=== PATIENT | male | born 1965 | race Caucasian/White ===

== ENCOUNTER 2017-01-15 17:14 | Emergency (ER) | payer BC, OTHER ==
[~2017-01-15] VITALS: Ht 182.9 cm; Wt 127.3 kg
[~2017-01-15 17:14] MED LIST: ALLO100T PO; CLR10 PO; GEMF600T3 PO; PARO1TAB27 PO
[2017-01-15 17:20] VITALS: TEMP 36.7; Ht 182.9 cm; Wt 127.3 kg
[2017-01-15] MEDS ORDERED: DIPHTHERIA/TETANUS/PERTUSSIS 0.5 ML SYR/VIAL IM. ONE (17:45)
[2017-01-15] MEDS ORDERED: XYLOCAINE 1%/SOD BICARB 20 ML VIAL INFIL ONE (17:45)
--- NOTE | 2017-01-15 17:48 | EMERGENCY ROOM VISIT NOTE ---
ED Visit Note First contact with patient: 17:38 CHIEF COMPLAINT: Finger laceration HISTORY OF PRESENT ILLNESS: This 51-year-old male patient presents to the emergency department ambulatory after cutting the right first finger on the blade on a beef blower just prior to arrival. The bleeding has stopped. Denies weakness or numbness of the finger. The patient has full range of motion of the fingers. The patient denies any pain. The patient denies any other injuries. The patient's tetanus shot is not up to date. REVIEW OF SYSTEMS: A 6 system review of systems was completed with positives and pertinent negatives listed in the HPI. ALLERGIES: No known drug allergies MEDICATIONS: See nursing notes PMH: Hypertension, gout SOCIAL HISTORY: The patient lives locally. He is employed. He does not smoke PHYSICAL EXAM: Vital Signs: Reviewed Nurse's notes, vital signs stable. GENERAL : This is a 51-year-old male, in no acute distress, well developed, well nourished. SKIN: There is a flap-like,2 cm long laceration on the distal palmar aspect of the right first finger. The edges gape apart with traction. There is no foreign material in the wound and it looks clean. There is minimal bleeding. No deep structures such as tendons, bones, or nerves are seen in the base of the wound. Extension and flexion of the finger is full and strong. Full range of motion of the wrist and other fingers. Capillary refill less than 2 seconds. Normal sensation to light and sharp touch. EMERGENCY DEPARTMENT COURSE: I examined the patient. Using sterile technique the wound was cleaned with Betadine. 5 ml of 1% buffered lidocaine was used to perform a digital block to anesthetize the patient. The area was sterilely draped. Once the patient was numb, the wound was copiously irrigated under pressure with sterile saline. The wound was explored and there were no deep structures such as tendons, bone, or ligaments present. The laceration was repaired using 4 simple interrupted 5-0 nylon sutures. The patient tolerated the procedure well. The bleeding stopped. The area was cleaned with sterile saline and dressed with bacitracin ointment and bandage. The patient was given a tetanus booster. The patient was discharged home in good condition. The patient presents to the emergency department with a laceration to the right thumb. This appears to be a very thin flap. There does not appear to be any open fracture and the wound does not appear to be open to the bone. I advised the patient that the soft tissue flap will likely and fall off but it may be of benefit to tack the flap down until the skin beneath heels. The patient was given a take-home pack of Eddy. He was placed in a metal splint. He should contact orthopedics on Wednesday to schedule a follow-up appointment for further evaluation and management. Patient return to the ER if any worsening symptoms. DISCHARGE INSTRUCTIONS & TREATMENT: Keep wound clean and dry. Do not allow any crusting or dried blood to accumulate on sutures. If this occurs, use a 1:1 solution of hydrogen peroxide/water on a Q-tip to clean the wound. Use an antibiotic ointment for 3-4 days, then let wound dry. Suture removal in 10-12 days. Return sooner for any signs of infection (increasing redness, swelling, drainage). Ice and elevate for swelling and pain. Ibuprofen 600 mg and Tylenol 1000 mg every 6 hrs for pain. Keep covered when in sun until sutures removed then SPF 50 or higher for one year. Vitamin E oil if desired two weeks after suture removal for reduction of scar. RIGHT THUMB RADIOGRAPHS CLINICAL HISTORY: Right thumb laceration/injury. COMPARISON: None FINDINGS: There is a markedly comminuted, mildly displaced fracture through the mid to distal aspect of the distal phalanx of the right thumb. There are multiple associated bone fragments. There is soft tissue injury. No additional fractures are identified. IMPRESSION: Mildly displaced, markedly comminuted fracture of the distal phalanx of the right thumb with multiple associated small bone fragments. Current/Historical Medications Scheduled Allopurinol (Zyloprim), 100 MG PO DAILY Amphetamine-Dextroamphetamine 10MG (Adderall 10MG), 10 MG PO BID Atorvastatin (Lipitor), 40 MG PO DAILY Lisinopril/Hctz (Zestoretic 20MG/12.5MG), 1 TAB PO DAILY Metformin Hcl Er (Glucophage Er), 500 MG PO DAILY Paroxetine (Paxil), 20 MG PO DAILY Trazodone Hcl (Trazodone), 50 MG PO HS Scheduled PRN Lorazepam (Ativan), 0.5 MG PO BID PRN for Anxiety Allergies Coded Allergies: No Known Allergies (Unverified , 08/24/16) Vital Signs Date Time Temp Pulse Resp B/P Pulse Ox O2 Delivery O2 Flow Rate FiO2 4/28/17 19:29 64 144/92 97 Room Air 01/15/17 17:20 36.7 59 18 175/94 98 Room Air Medications Administered Medications (Trade) Dose Ordered Sig/Ankit Route Start Time Stop Time Status Last Admin Dose Admin Diphtheria/ Pertussis/Tetanus Vacc (Adacel Inj) 0.5 ml ONCE ONCE IM. 01/15/17 17:45 01/15/17 17:46 DC 01/15/17 18:24 0.5 ML Lidocaine HCl (Buffered Lidocaine 1% Inj) 20 ml NOW ONCE INFIL 01/15/17 17:45 01/15/17 17:46 DC 01/15/17 18:25 20 ML Acetaminophen/ Hydrocodone Bitart (Eddy 5/325mg Home Pack) 1 homepack UD ONCE PO 01/15/17 19:30 01/15/17 19:31 DC 01/15/17 19:31 1 HOMEPACK Departure Information Impression Primary Impression: Laceration of finger Additional Impression: Finger fracture Dispostion Home / Self-Care Condition GOOD Referrals Jason Casey D.O. (PCP) Martin Reza, DO Patient Instructions [facility] Additional Instructions Keep wound clean and dry. Do not allow any crusting or dried blood to accumulate on sutures. If this occurs, use a 1:1 solution of hydrogen peroxide/ water on a Q-tip to clean the wound. Use an antibiotic ointment for 3-4 days, then let wound dry. Suture removal in 10-12 days. Return sooner for any signs of infection (increasing redness, swelling, drainage). Ice and elevate for swelling and pain. Ibuprofen 600 mg every 6 hrs for pain. Keep covered when in sun until sutures removed then SPF 50 or higher for one year. Vitamin E oil if desired two weeks after suture removal for reduction of scar. Wear the splint until seen by orthopedics Contact orthopedics Wednesday to schedule a follow-up appointment for further evaluation and management of the fracture Eddy 1 tablet every 6 hours if needed for worse pain. Do not drink or drive while taking Eddy and do not take with Tylenol. Problem Qualifiers Primary Impression: Laceration of finger Encounter type: initial encounter Qualified Codes: S61.219A - Laceration without foreign body of unspecified finger without damage to nail, initial encounter Additional Impression: Finger fracture Encounter type: initial encounter Finger: thumb Fracture type: closed Phalanx: distal Fracture alignment: displaced Laterality: right Qualified Codes: S62.521A - Displaced fracture of distal phalanx of right thumb, initial encounter for closed fracture
[2017-01-15] MEDS ORDERED: ATOR-24 PO (18:08)
[2017-01-15] MEDS ORDERED: LORA-741 PO (18:08)
[2017-01-15] MEDS ORDERED: TRAZ50TA35 PO (18:08)
[2017-01-15] MEDS ORDERED: LISI-787 PO (18:08)
[2017-01-15] MEDS ORDERED: METF500T5 PO (18:08)
[2017-01-15] MEDS ORDERED: AMPH10TA2 PO (18:08)
--- NOTE | 2017-01-15 18:47 | DIAGNOSTIC IMAGING REPORT ---
RIGHT THUMB RADIOGRAPHS CLINICAL HISTORY: Right thumb laceration/injury. COMPARISON: None FINDINGS: There is a markedly comminuted, mildly displaced fracture through the mid to distal aspect of the distal phalanx of the right thumb. There are multiple associated bone fragments. There is soft tissue injury. No additional fractures are identified. IMPRESSION: Mildly displaced, markedly comminuted fracture of the distal phalanx of the right thumb with multiple associated small bone fragments. Electronically signed by: Warren Cotto M.D. 01/15/2017 6:46 PM Dictated Date/Time: 01/15/2017 6:45 PM
[2017-01-15 19:29] VITALS: BP 144/92; PULSE 64; O2SAT 97
[2017-01-15] MEDS ORDERED: NORCO 5/325MG HOME PACK PO ONE (19:30)
[2017-07-29] MEDS ORDERED: AMPH10TA2 PO (07:53)
[2017-08-17] MEDS ORDERED: TRAM-10 PO (07:21)
== END 2017-01-15 19:39 | disposition home or self-care (01) ==
LOC: C.EDB 17:15 → C.EDD 19:39
DX: S61.011A Laceration without foreign body of right thumb without damage to nail, initial encounter (principal); W31.9XXA Contact with unspecified machinery, initial encounter; Z23 Encounter for immunization; I10 Essential (primary) hypertension; M10.9 Gout, unspecified; Z79.899 Other long term (current) drug therapy

== ENCOUNTER → 2017-08-17 | Day surgery (SDC) | payer BC ==
[2017-07-29 07:54] VITALS: Ht 182.9 cm; Wt 118.2 kg
[~2017-08-17] VITALS: Ht 182.9 cm; Wt 118.2 kg
[~2017-08-17] MED LIST changes: +AMPH10TA2 PO; +ATOR-24 PO; +ATROPINE SULFATE 0.1 MG/ML 5ML SYR IV PRN; +BUPIVACAINE 0.5 % 5 MG/1 ML MPF 30ML VIAL ONE; +CEFAZOLIN 2000MG IV PUSH 10 ML IV SCH; -CLR10 PO; +EpHEDrine SULFATE INJ 50 MG/ML AMP IV PRN; +FENTANYL CITRATE INJ 50 MCG/1 ML 2 ML VIAL IV PRN; +FENTANYL CITRATE INJ 50 MCG/1 ML 2 ML VIAL ONE; -GEMF600T3 PO; +LACTATED RINGER'S 1000ML 1,000 ML IV SCH; +LIDOCAINE HCL 1% 20 ML VIAL ONE; +LISI-787 PO; +LORA-741 PO; +METF500T5 PO; +MIDAZOLAM HCL 1 MG/ML 2ML VIAL ONE; +ONDANSETRON INJ 2 MG/ML 2 ML VIAL IV PRN; +OXYCODONE/ACETAMINOPHEN 5-325 TAB PO PRN; +PROPOFOL IV EMULSION 10 MG/ML 20 ML VIAL IV ONE; +SODIUM CHLORIDE 0.9% 1000ML 1,000 ML IV SCH; +TRAM-10 PO; +TRAZ50TA35 PO
--- NOTE | 2017-08-17 06:40 | History & Physical Bridge - SC ---
H&P Re-Evaluation Bridge Note: I have examined the patient, reviewed the History & Physical and in the interval since the performance of the History & Physical I have noted the following changes of clinical significance: No changes noted
--- NOTE | 2017-08-17 07:19 | [facility] Post Operative Brief Note ---
Immediate Operative Summary Operative Date Aug 17, 2017. Pre-Operative Diagnosis Left Carpal Tunnel Syndrome Post-Operative Diagnosis Same Procedure(s) Performed Left Carpal Tunnel Release Surgeon Dr. Alice Robert Cord Maker Surgeon(s) Gracia Berger PA-C Estimated Blood Loss 0 CC Findings ABOVE Specimens None Anesthesia LOCAL IV SEDATION Complication(s) None Disposition
[2017-08-17 07:21] VITALS: TEMP 36.4
--- NOTE | 2017-08-17 07:22 | Discharge Instructions-SurgCtr ---
Discharge Instructions Date of Service Aug 17, 2017. Visit Reason for Visit: Left Carpal Tunnel Syndrome Discharge Discharge Diagnosis / Problem: SAME ABOVE Discharge Goals Goal(s): Decrease discomfort, Improve function Activity Recommendations Activity Limitations: as noted below Lifting Limitations: until after follow-up appointment Exercise/Sports Limitations: until after follow-up appointment Shower/Bathe: keep incision dry Anesthesia . Post Anesthesia Instructions: If you have had General Anesthesia or IV Sedation: * Do not drive today. * Resume driving when surgeon permits. * Do not make important decisions or sign legal documents today. * Call surgeon for: 1. Temperature elevations greater than 101 degrees F. 2. Uncontrollable pain. 3. Excessive bleeding. 4. Persistent nausea and vomiting. 5. Medication intolerance (nausea, vomiting or rash). * For nausea and vomiting use only clear liquids such as: tea, soda, bouillon until nausea subsides, then gradually increase diet as tolerated. * If you have any concerns or questions, call your surgeon's office. If physician is unavailable and it is an emergency, call 911 or go to the nearest emergency room. . Instructions / Follow-Up Instructions / Follow-Up MEDICATIONS: * Resume previous medications unless instructed otherwise by your surgeon. * Always take pain medication on a full stomach or with food to avoid upset stomach. * Do not drink alcohol or drive while taking narcotics. * Ibuprofen or Tylenol may be taken if narcotic not needed. SPECIAL CARE INSTRUCTIONS: __ None _X_ Keep extremity elevated and iced x 48 hours; apply ice 20-30 minutes 8-10 times/day. May remove at night. __ Sling __24 hrs/day __ Remove at night __ Shoulder Immobilizer __ 24 hrs/day __ Remove at night _X_ Dressing _X_ Maintain until seen in office, may shower with plastic over site __ Remove dressings in 24-48 hours and then may shower __ Cover incisions with band-aids after showering __ Do not remove steri-strips Call physician if chills or temperature rises above 102 degrees or pain unrelieved by prescribed pain medications at . . Diet Recommendations Home Diet: no limitations Procedures Procedures Performed: Left Carpal Tunnel Release Pending Studies Studies pending at discharge: no Medical Emergencies . Who to Call and When: Medical Emergencies: If at any time you feel your situation is an emergency, please call 911 immediately. . Non-Emergent Contact Non-Emergency issues call your: Primary Care Provider . . "Provider Documentation" section prepared by Martin Berger. .
--- NOTE | 2017-08-17 07:32 | OPERATIVE REPORT ---
DATE OF OPERATION: 08/17/2017 PREOPERATIVE DIAGNOSIS: Left carpal tunnel syndrome. POSTOPERATIVE DIAGNOSIS: Same. PROCEDURE: Decompression median nerve release, transverse carpal ligament, left wrist. SURGEON: Guille Robert MD ABE TEACHER: Martin Berger PA-C ANESTHESIOLOGIST: Brandon Puente DO ANESTHESIA: Local with IV sedation. DRAINS: None. COMPLICATIONS: None. CONDITION: The patient tolerated the procedure well and returned to the recovery room in apparent satisfactory condition. INDICATIONS FOR SURGERY: Robert is a 51-year-old male who has had increasing pain, numbness and tingling in his left hand consistent with carpal tunnel complaints. We went over treatment options and he elected to go ahead and proceed with surgery. Procedure, expected outcome, side effects and risks were all explained in detail. PROCEDURE: The patient was taken to the OR at which time, he was placed supine on the operating table. The left hand was prepped and draped in the usual sterile fashion for this surgery. The anticipated incision site was infiltrated with 1% Xylocaine. A forearm tourniquet was placed on the arm and tourniquet was placed up to 250 mmHg. Incision was made vertically over the transverse carpal tunnel ligament. Dissection was done down until the palmar fascia was identified and divided with a 15-blade. The transverse carpal ligament was identified and also divided with the 15-blade and upbiting scissors. A small portion of the forearm fascia was divided also. Electrocautery was used to control any areas of bleeding. The nerve was freed up from any scar tissue and adequately decompressed. The wound then was copiously irrigated. It was closed then with interrupted 4-0 nylon sutures. Marcaine without Epinephrine was placed in the skin edges. It was closed in a layered fashion. We placed a sterile dressing of Xeroform, 4 x 4, volar splint, and an Jamin bandage. DISPOSITION: The patient was returned back to the recovery room in apparent satisfactory condition. I attest to the content of the Intraoperative Record and any orders documented therein. Any exception s are noted below.
[2017-08-17 07:41] VITALS: BP 144/84; PULSE 64; O2SAT 95
--- NOTE | 2017-08-17 07:58 | Anesthesia Progress Nt - [facility] ---
Anesthesia Post Op Note Date & Time Aug 17, 2017 at 07:58 Vital Signs Pain Intensity: 0 Vital Signs Past 12 Hours Date Time Temp Pulse Resp B/P (MAP) Pulse Ox O2 Delivery O2 Flow Rate FiO2 08/17/17 07:41 64 20 144/84 (104) 95 Room Air 08/17/17 07:21 36.4 70 20 149/79 (102) 94 Room Air 08/17/17 06:28 36.8 72 18 150/80 (103) 94 Room Air Notes Mental Status: alert / awake / arousable, participated in evaluation Pt Amnestic to Procedure: Yes Nausea / Vomiting: adequately controlled Pain: adequately controlled Airway Patency, RR, SpO2: stable & adequate BP & HR: stable & adequate Hydration State: stable & adequate Anesthetic Complications: no major complications apparent
== END | disposition home or self-care (01) ==
LOC: X.SURG 06:03
PROVIDERS: ATTEND Orthopaedic Surgery
DX: G56.02 Carpal tunnel syndrome, left upper limb (principal); G47.33 Obstructive sleep apnea (adult) (pediatric); E11.9 Type 2 diabetes mellitus without complications